=== PATIENT | female | born 1970 | race American Indian/Alaskan Native ===

== ENCOUNTER 2019-12-24 19:41 | Emergency (ER) | payer SELFPAY ==
[2019-12-24 20:42] LABS: Bacteria,Urine 1+ /HPF (Negative); Bilirubin,Urine NEG (Negative); Blood,Urine LG (Negative); Color,Urine Yellow (Yellow); Mucus,Urine FEW /HPF
[2019-12-24 20:45] LABS: RBC,Urine > 182.0 /HPF (0.0-6.0)
[2019-12-24 20:46] LABS: HCG Qualitative,Urine Negative (Negative)
[2019-12-24] MEDS ORDERED: MORPHINE 4 MG/1 ML INJ IV ONE (21:05)
[2019-12-24] MEDS ORDERED: SODIUM CHLORIDE 0.9% 1000 ML 1,000 ML IV ONE (21:05)
[2019-12-24] MEDS ORDERED: ONDANSETRON 4 MG/2 ML INJ IV ONE (21:05)
[2019-12-24 21:32] LABS: Basophils # (Auto) 0.1 K/mm3 (0.0-0.1); Basophils % (Auto) 1.1 % (0.0-1.8); Eosinophils # (Auto) 0.5 K/mm3 (0.0-0.4); Eosinophils % (Auto) 7.8 % (0.0-4.3); Hematocrit 35.6 % (30.3-42.9); Hemoglobin 11.9 gm/dl (10.1-14.3); Lymphocytes # (Auto) 2.9 K/mm3 (1.2-5.4); Lymphocytes % (Auto) 41.2 % (13.4-35.0); Mean Corpuscular HGB Conc 34 % (30-34); Mean Corpuscular Volume 92 fl (79-97); Monocytes # (Auto) 0.6 K/mm3 (0.0-0.8); Monocytes % (Auto) 9.3 % (0.0-7.3); Platelet Count 423 K/mm3 (140-440); Red Blood Count 3.88 M/mm3 (3.65-5.03); Red Cell Distribution Width 14.4 % (13.2-15.2)
[2019-12-24 21:58] LABS: Alanine Aminotransferase 18 units/L (7-56); Albumin 4.1 g/dL (3.9-5); BUN/Creatinine Ratio 18; Blood Urea Nitrogen 14 mg/dL (7-17); Calcium 9.5 mg/dL (8.4-10.2); Hemolysis Index 30
--- NOTE | 2019-12-24 22:50 | Cat Scan Report ---
CT ABDOMEN AND PELVIS WITH IV CONTRAST INDICATION: Right lower quadrant abdominal pain TECHNIQUE: Following the administration of intravenous contrast, multiple axial CT images of the abdo men and pelvis were acquired. Sagittal and coronal reformats were obtained. All CT performed at this facility utilize dose reduction techniques including automated exposure control, iterative reconstru ction and weight based dosing when appropriate to reduce patient radiation dose to as low as reasonab ly achievable. COMPARISON: None FINDINGS: Limited imaging of the bilateral lung bases demonstrates no acute abnormality. Abdomen: The liver, gallbladder, spleen, pancreas, bilateral adrenal glands and bilateral kidneys areli w no evidence of acute abnormality. The abdominal aorta is normal in course and caliber. There is no evidence of bowel obstruction or free fluid. The appendix is visualized and appears normal. Pelvis: There is minimal diverticulosis of the sigmoid colon without evidence for diverticulitis. The uterus is mildly enlarged and appears heterogeneous. No free pelvic fluid is identified. The urinary bladder appears normal. Bones and Soft Tissues: Evaluation of bony structures demonstrates no evidence of acute bony abnormal ity. IMPRESSION: 1. No evidence of acute inflammatory or obstructive process within the abdomen or pelvis. 2. Colonic diverticulosis without evidence for diverticulitis. 3. Enlarged heterogeneous uterus most likely secondary to the presence of multiple uterine fibroids. Signer Name: Maribell Chairez MD Signed: 12/24/2019 10:46 PM Workstation Name: [id number]
--- NOTE | 2019-12-24 23:45 | Emergency Department Report ---
ED Abdominal Pain HPI - General Chief Complaint: Abdominal Pain Stated Complaint: LOWER ABDOMINAL PAIN,VOMITING Source: patient Mode of arrival: Ambulatory Limitations: No Limitations - History of Present Illness Initial Comments: Patient is a 49-year-old -[place] female with a history of chronic uterine fibroids who presents to the ED with acute onset persistent severe heavy vaginal bleeding with diffuse lower abdominal pain for the last 12 hours. Patient states that the pain radiates from the suprapubic to the right lower quadrant and gets worse with movement. Patient also complains of persistent intermittent lightheadedness for the last 2 days. Patient denies fever, chills, dizziness, syncope, chest pain, shortness of breath, dysuria, urinary frequency and urgency, vaginal discharge, low back pain, cough, diarrhea or nausea and vomiting. MD Complaint: abdominal pain, other (heavy vaginal bleeding) -: Sudden, hour(s) (12) Location: suprapubic Radiation: none Migration to: no migration Severity scale (0 -10): 7 Quality: cramping, aching, sharp Consistency: constant Improves With: nothing Worsens With: nothing Associated Symptoms: denies other symptoms, nausea. denies: vomiting, diarrhea, fever, chills, constipation, dysuria, hematemesis, melena, hematuria, anorexia, syncope, other - Related Data Previous Rx's Medication Instructions Recorded Last Taken Type Ibuprofen [Motrin] 800 mg PO Q8HR PRN #30 tablet 12/24/19 Unknown Rx Ondansetron [Zofran Odt] 4 mg PO Q6HR PRN #15 tab.rapdis 12/24/19 Unknown Rx cephALEXin [Keflex] 500 mg PO Q8HR #30 cap 12/24/19 Unknown Rx traMADoL [Ultram] 50 mg PO Q6HR PRN #12 tablet 12/24/19 Unknown Rx Allergies Allergy/AdvReac Type Severity Reaction Status Date / Time azithromycin [From Zithromax] Allergy Headache Verified 12/24/19 19:53 ED Review of Systems ROS: Stated complaint: LOWER ABDOMINAL PAIN,VOMITING Other details as noted in HPI Constitutional: denies: chills, fever Eyes: denies: eye pain, eye discharge, vision change ENT: denies: ear pain, throat pain Respiratory: denies: cough, shortness of breath, wheezing Cardiovascular: denies: chest pain, palpitations Endocrine: no symptoms reported Gastrointestinal: abdominal pain. denies: nausea, diarrhea Genitourinary: abnormal menses (Vaginal bleeding). denies: urgency, dysuria, discharge Musculoskeletal: denies: back pain, joint swelling, arthralgia Skin: denies: rash, lesions Neurological: denies: headache, weakness, paresthesias Psychiatric: denies: anxiety, depression Hematological/Lymphatic: denies: easy bleeding, easy bruising ED Past Medical Hx - Past Medical History Previous Medical History?: Yes Additional medical history: Uterine fibroids. - Surgical History Past Surgical History?: Yes Additional Surgical History: Tubal Ligation - Social History Smoking Status: Never Smoker Substance Use Type: None - Medications Home Medications: Home Medications Medication Instructions Recorded Confirmed Last Taken Type Ibuprofen [Motrin] 800 mg PO Q8HR PRN #30 tablet 12/24/19 Unknown Rx Ondansetron [Zofran Odt] 4 mg PO Q6HR PRN #15 tab.rapdis 12/24/19 Unknown Rx cephALEXin [Keflex] 500 mg PO Q8HR #30 cap 12/24/19 Unknown Rx traMADoL [Ultram] 50 mg PO Q6HR PRN #12 tablet 12/24/19 Unknown Rx ED Physical Exam - General Limitations: No Limitations General appearance: alert, in no apparent distress - Head Head exam: Present: atraumatic, normocephalic, normal inspection - Eye Eye exam: Present: normal appearance, PERRL, EOMI Pupils: Present: normal accommodation - ENT ENT exam: Present: normal exam, normal orophraynx, mucous membranes moist, TM's normal bilaterally, normal external ear exam - Neck Neck exam: Present: normal inspection, full ROM - Respiratory Respiratory exam: Present: normal lung sounds bilaterally. Absent: respiratory distress, wheezes, rales, rhonchi, chest wall tenderness, accessory muscle use, decreased breath sounds - Cardiovascular Cardiovascular Exam: Present: regular rate, normal rhythm, normal heart sounds. Absent: systolic murmur, diastolic murmur, rubs, gallop - GI/Abdominal GI/Abdominal exam: Present: soft, tenderness (Palpable suprapubic tenderness), normal bowel sounds. Absent: guarding, rebound, hyperactive bowel sounds, hypoactive bowel sounds, organomegaly - Extremities Exam Extremities exam: Present: normal inspection, full ROM, normal capillary refill - Back Exam Back exam: Present: normal inspection, full ROM. Absent: tenderness, CVA tenderness (R), CVA tenderness (L), muscle spasm, paraspinal tenderness, vertebral tenderness - Neurological Exam Neurological exam: Present: alert, oriented X3, CN II-XII intact, normal gait, reflexes normal - Psychiatric Psychiatric exam: Present: normal affect, normal mood - Skin Skin exam: Present: warm, dry, intact, normal color. Absent: rash ED Course Vital Signs 12/24/19 19:45 Temperature 98.1 F Pulse Rate 93 H Respiratory 16 Rate Blood Pressure 143/101 O2 Sat by Pulse 100 Oximetry ED Medical Decision Making - Lab Data Result diagrams: 12/24/19 21:17 12/24/19 21:17 - Radiology Data Radiology results: report reviewed, image reviewed Findings [facility] [address] [id number] Cat Scan Report Signed Patient: JEFRY TURNER MR#: [id number] : 1970 Acct:[id number] Age/Sex: 49 / F ADM Date: 12/24/19 Loc: ED Attending Dr: Ordering Physician: LEXIE MANN Date of Service: 12/24/19 Procedure(s): CT abdomen pelvis w con Accession Number(s): [id number] cc: LEXIE MANN CT ABDOMEN AND PELVIS WITH IV CONTRAST INDICATION: Right lower quadrant abdominal pain TECHNIQUE: Following the administration of intravenous contrast, multiple axial CT images of the abdomen and pelvis were acquired. Sagittal and coronal reformats were obtained. All CT performed at this facility utilize dose reduction techniques including automated exposure co ntrol, iterative reconstruction and weight based dosing when appropriate to reduce patient radiation dose to as low as reasonably achievable. COMPARISON: None FINDINGS: Limited imaging of the bilateral lung bases demonstrates no acute abnormality. Abdomen: The liver, gallbladder, spleen, pancreas, bilateral adrenal glands and bilateral kidneys show no evidence of acute abnormality. The abdominal aorta is normal in course and caliber. There is no evidence of bowel obstruction or free fluid. The appendix is visualized and appears normal. Pelvis: There is minimal diverticulosis of the sigmoid colon without evidence for diverticulitis. The uterus is mildly enlarged and appears heterogeneous. No free pelvic fluid is identified. The urinary bladder appears normal. Bones and Soft Tissues: Evaluation of bony structures demonstrates no evidence of acute bony abnormality. IMPRESSION: 1. No evidence of acute inflammatory or obstructive process within the abdomen or pelvis. 2. Colonic diverticulosis without evidence for diverticulitis. 3. Enlarged heterogeneous uterus most likely secondary to the presence of multiple uterine fibroids. Signer Name: Maribell Chairez MD Signed: 12/24/2019 10:46 PM Workstation Name: [id number] Transcribed By: IVAN Dictated By: Maribell Chairez MD Electronically Authenticated By: Maribell Chairez MD Signed Date/Time: 12/24/192245 DD/ 41 TD/TT: - Medical Decision Making This is a 49-year-old -[place] female with a history of chronic uterine fibroids who presents to the ED with acute onset persistent severe heavy vaginal bleeding with diffuse lower abdominal pain for the last 12 hours. Patient states that the pain radiates from the suprapubic to the right lower quadrant and gets worse with movement. Patient also complains of persistent intermittent lightheadedness for the last 2 days. In the ED, patient is alert and oriented x3 and is not in distress. Patient was treated for pain in the ED. Lab test results were reviewed and are all nonactionable except for urinalysis that showed significant urinary tract infection. Abdomen pelvis CT scan with contrast showed no evidence of acute inflammatory or obstructive process within the abdomen or pelvis. It also showed colonic diverticulosis without evidence for diverticulitis; and enlarged heterogeneous uterus most likely secondary to the presence of multiple uterine fibroids. On reevaluation, patient's pain is well controlled medications. Patient will discharge home on pain medications a nd antibiotics and patient was advised to follow-up with [facility] physician in 5 to 7 days for reevaluation or return to the ED immediately if symptoms get worse. - Differential Diagnosis UTI; Ovarian cyst; Diverticulitis; Kidney stones; Dysmenorrhea; Fibroids Critical care attestation.: If time is entered above; I have spent that time in minutes in the direct care of this critically ill patient, excluding procedure time. ED Disposition Clinical Impression: Dysmenorrhea, Acute urinary tract infection Abdominal pain Qualifiers: Abdominal location: lower abdomen, unspecified Qualified Code(s): R10.30 - Lower abdominal pain, unspecified Uterine fibroid Qualifiers: Uterine leiomyoma location: unspecified location Qualified Code(s): D25.9 - Leiomyoma of uterus, unspecified Menorrhagia Qualifiers: Menorrhagia type: with regular cycle Qualified Code(s): N92.0 - Excessive and frequent menstruation with regular cycle Disposition: TO HOME OR SELFCARE Is pt being admited?: No Does the pt Need Aspirin: No Condition: Stable Instructions: Abdominal Pain (ED), Dysmenorrhea (ED), Uterine Fibroids (ED), Urinary Tract Infection in Women (ED) Additional Instructions: All lab test results are unremarkable and imaging report showed no acute abnormalities except for uterine fibroids. Therefore take medication with food, drink plenty of fluids and follow-up with your primary care physician in 7 to 10 days for reevaluation. Return to the ED immediately if symptoms get worse. Prescriptions: cephALEXin [Keflex] 500 mg PO Q8HR #30 cap Ibuprofen [Motrin] 800 mg PO Q8HR PRN #30 tablet PRN Reason: Pain , Severe (7-10) traMADoL [Ultram] 50 mg PO Q6HR PRN #12 tablet PRN Reason: Pain Ondansetron [Zofran Odt] 4 mg PO Q6HR PRN #15 tab.rapdis PRN Reason: Nausea Referrals: [facility] [Provider Group] - 3-5 Days SAMMY LEON MD [Staff Physician] - 3-5 Days Forms: Work/School Release Form(ED) Time of Disposition: 23:46 Print Language: [place]AST [place]
[2019-12-25 01:24] VITALS: BP 173/84
== END 2019-12-25 00:05 | disposition home or self-care (01) ==
LOC: ED 19:41
DX: N92.0 Excessive and frequent menstruation with regular cycle (principal); D25.9 Leiomyoma of uterus, unspecified; N94.6 Dysmenorrhea, unspecified; N93.0 Postcoital and contact bleeding; R10.30 Lower abdominal pain, unspecified; Z79.899 Other long term (current) drug therapy; Z88.0 Allergy status to penicillin; Z98.51 Tubal ligation status
CPT/HCPCS: 36415; 74177; 80053; 81001; 81025; 83690; 85025; 87086; 96361; 96374; 96375; 99284; J2270; J2405; J7030; Q9967

== ENCOUNTER 2021-12-17 22:35 | Emergency (ER) | payer SELFPAY ==
[2021-12-17 22:51] VITALS: BP 153/95
== END 2021-12-18 11:17 | disposition left against medical advice (07) ==
LOC: ED 22:35
DX: I10 Essential (primary) hypertension (principal); Z53.21 Procedure and treatment not carried out due to patient leaving prior to being seen by health care provider